=== PATIENT | male | born 1985 | race Caucasian/White ===

== ENCOUNTER 2018-05-05 06:31 | Emergency (ER) | payer OTHER, BC ==
[2018-05-05 06:41] VITALS: BP 132/88
[2018-05-05] MEDS ORDERED: PROPARACAINE 0.5% OPHTH DROPS 15 ML LEFTEYE STA (06:45)
[2018-05-05] MEDS ORDERED: ERYTHROMYCIN OPHTH OINT 1 GM TUBE LEFTEYE STA (07:19)
--- NOTE | 2018-05-05 07:21 | ED Physician Documentation ---
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 work at [employer] has removed contact did not sleep in contact etc pain and irritation and FB sensation Review of Systems Eyes: reports: Irritation PD PAST MEDICAL HISTORY - Past Medical History Past Medical History: No - Past Surgical History Past Surgical History: No - Present Medications Home Medications: Ambulatory Orders Medication Instructions Recorded Confirmed Erythromycin Base [Erythromycin] 1 applic OP Q4H #1 tub 05/05/18 - Allergies Allergies/Adverse Reactions: Allergies Allergy/AdvReac Type Severity Reaction Status Date / Time acetaminophen [From Tylenol] Allergy Unknown Verified 05/05/18 06:38 codeine [From Coditussin AC] Allergy Unknown Verified 05/05/18 06:38 guaifenesin Allergy Unknown Verified 05/05/18 06:38 [From Coditussin AC] - Social History Does the pt smoke?: No Smoking Status: Never smoker Does the pt drink ETOH?: Yes Does the pt have substance abuse?: No - Immunizations Immunizations are current?: Yes - POLST Patient has POLST: No PD ED PE NORMAL - Vitals Vital signs reviewed: Yes - HEENT HEENT: Other (L eye injected, PERRl, no proptosis, EOMI, moderate abrasion LLQ, no FB even with lid eversion, no ulcer, no deindrites) Results - Vitals Vitals: Vital Signs - 24 hr 05/05/18 06:33 Temperature 36.6 C Heart Rate 75 Respiratory 16 Rate Blood Pressure 132/88 H O2 Saturation 97 Oxygen O2 Source Room air PD MEDICAL DECISION MAKING - Sepsis Event Vital Signs: Vital Signs - 24 hr 05/05/18 06:33 Temperature 36.6 C Heart Rate 75 Respiratory 16 Rate Blood Pressure 132/88 H O2 Saturation 97 Oxygen O2 Source Room air Departure - Departure Disposition: 01 Home, Self Care Clinical Impression: Corneal abrasion Qualifiers: Encounter type: initial encounter Laterality: left Qualified Code(s): S05.02XA - Injury of conjunctiva and corneal abrasion without foreign body, left eye, initial encounter Condition: Good Instructions: ED Eye Injury Corneal Abrasion Prescriptions: Erythromycin Base [Erythromycin] 1 applic OP Q4H #1 tub Comments: Do no wear your contacts until better Motrin and cool compresses for pain Eye ointment every 4 hr while awake for 5 days Return to see me Tuesday if not improving Forms: Activity restrictions
== END 2018-05-05 07:26 | disposition home or self-care (01) ==
LOC: ED 06:31
DX: S05.02XA Injury of conjunctiva and corneal abrasion without foreign body, left eye, initial encounter (principal); W22.8XXA Striking against or struck by other objects, initial encounter; Y99.0 Civilian activity done for income or pay
CPT/HCPCS: 99283; J3490

== ENCOUNTER 2018-10-30 16:33 | Emergency (ER) | payer BC, OTHER ==
[2018-10-30] MEDS ORDERED: SODIUM CHLORIDE 0.9% 1,000 ML IV ONE (19:47)
[2018-10-30] MEDS ORDERED: METOCLOPRAMIDE 10 MG/2 ML VIAL IVP STA (19:47)
[2018-10-30] MEDS ORDERED: KETOROLAC 15 MG/ML VIAL IVP STA (19:47)
[2018-10-30 20:07] LABS: BASOPHILS # (AUTO) 0.1 10^3/uL (0.0-0.1); BASOPHILS % (AUTO) 0.7 %; EOSINOPHILS % (AUTO) 0.5 %; LYMPHOCYTES # (AUTO) 2.4 10^3/uL (1.5-3.5); LYMPHOCYTES % (AUTO) 28.1 %; MEAN CORPUSCULAR HEMOGLOBIN 29.1 pg (27.0-31.0); MEAN CORPUSCULAR HGB CONC 33.7 g/dL (32.0-36.0); MEAN CORPUSCULAR VOLUME 86.3 fL (80.0-94.0); MONOCYTES # (AUTO) 0.6 10^3/uL (0.0-1.0); NEUTROPHILS # (AUTO) 5.3 10^3/uL (1.5-6.6); NEUTROPHILS % (AUTO) 63.7 %; PLT - PLATELET COUNT 199 10^3/uL (130-450); RED BLOOD COUNT 5.14 10^6/uL (4.70-6.10); RED CELL DISTRIBUTION WIDTH 12.8 % (12.0-15.0); WHITE BLOOD COUNT 8.4 x10^3/uL (4.8-10.8)
[2018-10-30 20:28] LABS: ALBUMIN 4.8 g/dL (3.2-5.5); ALBUMIN/GLOBULIN RATIO 1.5 (1.0-2.2); BILIRUBIN,TOTAL 1.1 mg/dL (0.2-1.0); CALCIUM 9.2 mg/dL (8.5-10.3); CREATININE 0.7 mg/dL (0.6-1.2); TOTAL PROTEIN 7.9 g/dL (6.7-8.2)
--- NOTE | 2018-10-30 21:08 | CT Report ---
Reason: HERNANDEZ Procedure Date: 10/30/2018 Accession Number: [id number] / [id number] Procedure: CT - HEAD WO CPT Code: FULL RESULT: EXAM: CT HEAD EXAM DATE: 10/30/2018 08:40 PM. CLINICAL HISTORY: Persistent headache. COMPARISON: None. TECHNIQUE: Multiaxial CT images were obtained from the foramen magnum to the vertex. Reformats: Sagittal and coronal. IV contrast: None. In accordance with CT protocol optimization, one or more of the following dose reduction techniques were utilized for this exam: automated exposure control, adjustment of mA and/or KV based on patient size, or use of iterative reconstructive technique. FINDINGS: Parenchyma: No intraparenchymal hemorrhage. No evidence of mass, midline shift, or CT findings of infarction. Pedroza-white differentiation is distinct. Extraaxial Spaces: Normal for age. No subdural or epidural collections identified. Ventricles: Normal in size and position. Sinuses and Orbits: Mucosal thickening in the sphenoid sinus, otherwise the imaged paranasal sinuses, orbits, and mastoids show no significant abnormality. Bones: No evidence of fracture or calvarial defect. Other: None. IMPRESSION: Chronic sphenoid sinusitis noted, otherwise unremarkable head CT. RADIA
[2018-10-30] MEDS ORDERED: AMOX/CLAV 875 MG/125 MG TABLET PO STA (21:23)
--- NOTE | 2018-10-30 21:26 | ED Physician Documentation ---
History of Present Illness - Stated complaint Stated Complaint: NUMBNESS IN HEAD - Chief complaint Chief Complaint: General - Additonal information Additional information: 33-year-old male presents the emergency department with head pain, dizziness and general fatigue and increased thirst which started today. The patient has recently had a URI which has progressed and had significant sinus pressure and congestion. No reports of fever, neck stiffness or neurologic changes. Symptoms are described as moderate. No other associated symptoms. No triggering factors. No relieving factors Review of Systems Constitutional: denies: Fever, Chills Eyes: denies: Discharge Ears: denies: Ear pain Nose: reports: Congestion Throat: denies: Sore throat Cardiac: denies: Chest pain / pressure Respiratory: denies: Cough GI: denies: Abdominal Pain : denies: Dysuria Skin: denies: Rash Musculoskeletal: denies: Neck pain Neurologic: reports: Headache. denies: Generalized weakness, Focal weakness, Numbness, Confused, Altered mental status PD PAST MEDICAL HISTORY - Past Medical History Past Medical History: No Cardiovascular: None Respiratory: None Neuro: None Endocrine/Autoimmune: None GI: None : None HEENT: None Psych: None Musculoskeletal: None Derm: None - Past Surgical History Past Surgical History: No - Present Medications Home Medications: Ambulatory Orders Medication Instructions Recorded Confirmed Erythromycin Base [Erythromycin] 1 applic OP Q4H #1 tub 05/05/18 Amox/Clav 875/125 [Augmentin] 1 each PO Q12H #20 tablet 10/30/18 - Allergies Allergies/Adverse Reactions: Allergies Allergy/AdvReac Type Severity Reaction Status Date / Time acetaminophen [From Tylenol] Allergy Unknown Verified 10/30/18 16:47 codeine [From Coditussin AC] Allergy Unknown Verified 10/30/18 16:47 hydroxyzine Allergy Dizziness Verified 10/30/18 16:47 guaifenesin AdvReac Unknown Verified 10/30/18 16:47 [From Coditussin AC] - Social History Does the pt smoke?: No Smoking Status: Never smoker Does the pt drink ETOH?: Yes Does the pt have substance abuse?: No - Immunizations Immunizations are current?: Yes - POLST Patient has POLST: No PD ED PE NORMAL - General General: Alert and oriented X 3, No acute distress - HEENT HEENT: Atraumatic, PERRL, EOMI, Ears normal, Pharynx benign - Neck Neck: Supple, no meningeal sign - Cardiac Cardiac: RRR, Strong equal pulses - Respiratory Respiratory: No respiratory distress, Clear bilaterally - Abdomen Abdomen: Soft, Non tender - Derm Derm: Normal color - Extremities Extremities: No deformity - Neuro Neuro: Alert and oriented X 3, 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, No motor deficit, Normal speech - Psych Psych: Normal mood Results - Vitals Vitals: Vital Signs - 24 hr 10/30/18 10/30/18 10/30/18 16:40 19:25 20:18 Temperature 36.7 C Heart Rate 82 77 Respiratory 16 17 16 Rate Blood Pressure 134/92 H 140/98 H 132/95 H O2 Saturation 100 98 10/30/18 10/30/18 20:19 20:57 Temperature Heart Rate 65 69 Respiratory 16 Rate Blood Pressure 129/89 H O2 Saturation 100 100 Oxygen O2 Source Room air - Labs Labs: Laboratory Tests 10/30/18 10/30/18 19:57 19:57 WBC 8.4 RBC 5.14 Hgb 15.0 Hct 44.4 MCV 86.3 MCH 29.1 MCHC 33.7 RDW 12.8 Plt Count 199 MPV 9.0 Neut # (Auto) 5.3 Lymph # (Auto) 2.4 [place] # (Auto) 0.6 Eos # (Auto) 0.0 Baso # (Auto) 0.1 Absolute Nucleated RBC 0.01 Nucleated RBC % 0.1 Sodium 137 Potassium 3.4 L Chloride 100 L Carbon Dioxide 28 Anion Gap 9.0 BUN 20 Creatinine 0.7 Estimated GFR (MDRD) 132 Glucose 91 Calcium 9.2 Total Bilirubin 1.1 H AST 23 ALT 34 Alkaline Phosphatase 62 Total Protein 7.9 Albumin 4.8 Globulin 3.1 Albumin/Globulin Ratio 1.5 Lipase 30 - Rads (name of study) CT head Radiology: Final report received, See rad report (IMPRESSION: Chronic sphenoid sinusitis noted, otherwise unremarkable head CT) PD MEDICAL DECISION MAKING - ED course ED course: The patient's sinus symptoms have been ongoing for quite a long time and now has CT evidence of sinusitis, given the duration and radiographic findings he will be treated for a sinus infection. The patient will be treated with antibiotics for presumed bacterial etiology. Otherwise, on reevaluation the patient is resting comfortably and his symptoms are under control. Presently the patient appears appropriate for discharge with ongoing outpatient management. The patient will return to the emergency department immediately for any worsening or any concerns Departure - Departure Disposition: 01 Home, Self Care Clinical Impression: Dizziness Headache Qualifiers: Headache type: unspecified Headache chronicity pattern: acute headache Intractability: not intractable Qualified Code(s): R51 - Headache Sinusitis Qualifiers: Sinusitis location: other Chronicity: acute Recurrence: non-recurrent Qualified Code(s): J01.80 - Other acute sinusitis Condition: Good Instructions: ED Dizziness UKO, ED Cephalgia Unspecified, ED Sinusitis Abx Tx Follow-Up: N[facility] [Provider Group] Prescriptions: Amox/Clav 875/125 [Augmentin] 1 each PO Q12H #20 tablet Comments: Please return to the emergency department for worsening symptoms or any concerns
[2018-10-30 21:42] VITALS: BP 141/110
== END 2018-10-30 21:50 | disposition home or self-care (01) ==
LOC: ED 16:33
DX: J01.80 Other acute sinusitis (principal); J32.3 Chronic sphenoidal sinusitis; R42 Dizziness and giddiness
CPT/HCPCS: 36415; 70450; 80053; 83690; 85025; 96361; 96374; 99283; A9270; J2765

== ENCOUNTER 2019-10-26 16:30 | Emergency (ER) | payer BC ==
[2019-10-26 17:32] LABS: BASOPHILS % (AUTO) 0.4 %; EOSINOPHILS % (AUTO) 0.4 %; HGB - HEMOGLOBIN 15.7 g/dL (14.0-18.0); LYMPHOCYTES # (AUTO) 1.6 10^3/uL (1.5-3.5); LYMPHOCYTES % (AUTO) 22.6 %; MEAN CORPUSCULAR HGB CONC 35.1 g/dL (32.0-36.0); MEAN CORPUSCULAR VOLUME 85.5 fL (80.0-94.0); MEAN PLATELET VOLUME 11.1 fL (7.4-11.4); MONOCYTES # (AUTO) 0.5 10^3/uL (0.0-1.0); MONOCYTES % (AUTO) 6.5 %; NEUTROPHILS # (AUTO) 4.9 10^3/uL (1.5-6.6); NEUTROPHILS % (AUTO) 69.5 %; PLT - PLATELET COUNT 236 10^3/uL (130-450); RED BLOOD COUNT 5.23 10^6/uL (4.70-6.10); RED CELL DISTRIBUTION WIDTH 11.3 % (12.0-15.0); WHITE BLOOD COUNT 7.1 x10^3/uL (4.8-10.8)
[2019-10-26] MEDS ORDERED: KETOROLAC 60 MG/2 ML VIAL IM STA (17:36)
[2019-10-26 17:39] LABS: BILIRUBIN,URINE NEGATIVE (NEGATIVE); GLUCOSE, URINE (UA) NEGATIVE (NEGATIVE); KETONES,URINE (UA) NEGATIVE (NEGATIVE); LEUKOCYTE ESTERASE, URINE NEGATIVE (NEGATIVE); NITRITE,URINE NEGATIVE (NEGATIVE); OCCULT BLOOD,URINE NEGATIVE (NEGATIVE); PH,URINE 7.5 PH (5.0-7.5); PROTEIN,URINE NEGATIVE (NEGATIVE); UROBILINOGEN,URINE 0.2 (NORMAL) E.U./dL (NORMAL)
[2019-10-26 17:40] LABS: ALBUMIN 5.2 g/dL (3.2-5.5); ALBUMIN/GLOBULIN RATIO 1.9 (1.0-2.2); BILIRUBIN,TOTAL 0.5 mg/dL (0.2-1.0); CALCIUM 9.1 mg/dL (8.5-10.3); CREATININE 0.7 mg/dL (0.6-1.2)
--- NOTE | 2019-10-26 17:40 | ED Physician Documentation ---
History of Present Illness - Stated complaint Stated Complaint: RT BACK PX/MALE - Chief complaint Chief Complaint: General - History obtained from History obtained from: Patient - History of Present Illness Timing: Today Pain level max: 9 Pain level now: 5 - Additonal information Additional information: R flank pain, sudden onset. [place] like he had a weak stream as well today. This is better now. Nothing makes it better or worse. states dark urine last night. no vomiting. no nausea. Review of Systems Ten Systems: 10 systems reviewed and negative Constitutional: denies: Fever, Chills Throat: denies: Sore throat Cardiac: denies: Chest pain / pressure Respiratory: denies: Cough GI: denies: Vomiting, Diarrhea Skin: denies: Rash Musculoskeletal: denies: Neck pain, Back pain Neurologic: denies: Headache PD PAST MEDICAL HISTORY - Past Medical History Cardiovascular: None Respiratory: None Neuro: None Endocrine/Autoimmune: None GI: None : None HEENT: None Psych: None Musculoskeletal: None Derm: None - Past Surgical History Past Surgical History: No - Present Medications Home Medications: Ambulatory Orders Medication Instructions Recorded Confirmed Erythromycin Base [Erythromycin] 1 applic OP Q4H #1 tub 05/05/18 Amox/Clav 875/125 [Augmentin] 1 each PO Q12H #20 tablet 10/30/18 - Allergies Allergies/Adverse Reactions: Allergies Allergy/AdvReac Type Severity Reaction Status Date / Time acetaminophen [From Tylenol] Allergy Unknown Verified 10/26/19 16:37 codeine [From Coditussin AC] Allergy Unknown Verified 10/26/19 16:37 hydroxyzine Allergy Dizziness Verified 10/26/19 16:37 guaifenesin AdvReac Unknown Verified 10/26/19 16:37 [From Coditussin AC] - Social History Does the pt smoke?: No Smoking Status: Never smoker Does the pt drink ETOH?: Yes Does the pt have substance abuse?: No - Immunizations Immunizations are current?: Yes - POLST Patient has POLST: No PD ED PE NORMAL - Vitals Vital signs reviewed: Yes - General General: Alert and oriented X 3, No acute distress - HEENT HEENT: Moist mucous membranes - Neck Neck: Supple, no meningeal sign - Cardiac Cardiac: RRR, Strong equal pulses - Respiratory Respiratory: No respiratory distress, Clear bilaterally - Abdomen Abdomen: Normal bowel sounds, Soft, Non tender, Non distended - Back Back: No CVA TTP, No spinal TTP - Derm Derm: Warm and dry, No rash - Neuro Neuro: Alert and oriented X 3 - Psych Psych: Normal mood, Normal affect Results - Vitals Vitals: Vital Signs - 24 hr 10/26/19 10/26/19 16:34 18:39 Temperature 36.3 C L Heart Rate 86 76 Respiratory 17 18 Rate Blood Pressure 148/98 H 144/88 H O2 Saturation 98 100 Oxygen O2 Source Room air - Labs Labs: Laboratory Tests 10/26/19 10/26/19 10/26/19 17:18 17:18 17:20 WBC 7.1 RBC 5.23 Hgb 15.7 Hct 44.7 MCV 85.5 MCH 30.0 MCHC 35.1 RDW 11.3 L Plt Count 236 MPV 11.1 Neut # (Auto) 4.9 Lymph # (Auto) 1.6 [place] # (Auto) 0.5 Eos # (Auto) 0.0 Baso # (Auto) 0.0 Absolute Nucleated RBC 0.00 Nucleated RBC % 0.0 Sodium 136 Potassium 3.3 L Chloride 99 L Carbon Dioxide 28 Anion Gap 9.0 BUN 13 Creatinine 0.7 Estimated GFR (MDRD) 131 Glucose 112 H Calcium 9.1 Total Bilirubin 0.5 AST 21 ALT 33 Alkaline Phosphatase 59 Total Protein 8.0 Albumin 5.2 Globulin 2.8 Albumin/Globulin Ratio 1.9 Lipase 29 Urine Color YELLOW Urine Clarity CLEAR Urine pH 7.5 Ur Specific [place] 1.010 Urine Protein NEGATIVE Urine Glucose (UA) NEGATIVE Urine Ketones NEGATIVE Urine Occult Blood NEGATIVE Urine Nitrite NEGATIVE Urine Bilirubin NEGATIVE Urine Urobilinogen 0.2 (NORMAL) Ur Leukocyte Esterase NEGATIVE Ur Microscopic Review NOT INDICATED Urine Culture Comments NOT INDICATED - Rads (name of study) CT abd/pelvis w/o Radiology: Prelim report reviewed, EMP read contemporaneously PD MEDICAL DECISION MAKING - ED course Complexity details: reviewed results, re-evaluated patient, considered differential, d/w patient ED course: Patient with symptoms consistent with a recently passed kidney stone. No acute findings on CT scan of the abdomen or pelvis. Normal appendix. Pain resolved with Toradol. No evidence of UTI. No change in sexual partners. No evidence of STD. Patient counseled regarding signs and symptoms for which I believe and urgent re-evaluation would be necessary. Patient with good understanding of and agreement to plan and is comfortable going home at this time This document was made in part using voice recognition software. While efforts are made to proofread this document, sound alike and grammatical errors may occur. Departure - Departure Disposition: 01 Home, Self Care Clinical Impression: Flank pain Condition: Good Instructions: ED Stone Renal Passed Follow-Up: your,doctor as needed. [Other] Comments: It appears that you likely passed a kidney stone today. Follow-up with your doctor for further care as needed. Return if you worsen. Discharge Date/Time: 10/26/19 18:39
[2019-10-26 17:42] LABS: CLARITY,URINE CLEAR (CLEAR)
--- NOTE | 2019-10-26 18:16 | CT Report ---
Reason: R flank pain Procedure Date: 10/26/2019 Accession Number: [id number] / [id number] Procedure: CT - Abdomen/Pelvis WO CPT Code: Final Report FULL RESULT: EXAM: CT ABDOMEN AND PELVIS (CT KUB) EXAM DATE: 10/26/2019 05:45 PM. CLINICAL HISTORY: R flank pain. COMPARISONS: None. TECHNIQUE: Routine axial helical CT imaging was performed through the abdomen and pelvis without IV contrast. Reconstructions: Coronal and sagittal. In accordance with CT protocol optimization, one or more of the following dose reduction techniques were utilized for this exam: automated exposure control, adjustment of mA and/or KV based on patient size, or use of iterative reconstructive technique. FINDINGS: Lung Bases: Unremarkable. Right Kidney/Ureter: No stones, hydronephrosis, or hydroureter. No perinephric fat stranding. Left Kidney/Ureter: No stones, hydronephrosis, or hydroureter. No perinephric fat stranding. Other Solid Organs: Noncontrast images of the solid organs are grossly unremarkable. Gallbladder/Bile Ducts: Unremarkable. Peritoneal Cavity: No free fluid, free air or leigh adenopathy. Bowel is grossly unremarkable. Normal retrocecal appendix. Pelvic Organs: No bladder stones or wall thickening. Noncontrast images of the visualized pelvic organs are unremarkable. Vasculature: Unremarkable. Other: None. IMPRESSION: 1. No urinary tract stones or obstruction. 2. Normal appendix. RADIA
[2019-10-26 18:39] VITALS: BP 144/88
== END 2019-10-26 18:39 | disposition home or self-care (01) ==
LOC: ED 16:30
DX: R10.9 Unspecified abdominal pain (principal)
CPT/HCPCS: 36415; 74176; 80053; 81001; 81003; 83690; 85025; 87086; 96372; 99284

== ENCOUNTER 2019-10-27 21:00 | Emergency (ER) | payer BC ==
--- NOTE | 2019-10-27 21:21 | ED Physician Documentation ---
History of Present Illness - Stated complaint Stated Complaint: N/D, FEVER - ED F/U - Chief complaint Chief Complaint: Abd Pain - History obtained from History obtained from: Patient (the patient is a 34 y/o m who c/o diarrhea, chills, right leg pain. was seen here yesterday had a neg ct ap, neg cbc/cmp and ua. was normal. patient c/o of right leg pain after he received IM toradol shot yesterday in right glute.Patient also reports Shaking,. He denies any travel outside the country in the last 14 days he denies any fevers denies headache neck pain or rashes denies any bowel or bladder dysfunction denies any urinary retention denies any saddle anesthesia denies any difficulty ambulating.) Review of Systems Constitutional: reports: Chills, Myalgias, Sweats, Reviewed and negative Eyes: reports: Reviewed and negative Ears: reports: Reviewed and negative Nose: reports: Reviewed and negative Throat: reports: Reviewed and negative Cardiac: reports: Reviewed and negative Respiratory: reports: Reviewed and negative GI: reports: Diarrhea : reports: Reviewed and negative Skin: reports: Reviewed and negative Musculoskeletal: reports: Other (right leg pain) Neurologic: reports: Reviewed and negative Psychiatric: reports: Reviewed and negative Endocrine: reports: Reviewed and negative Immunocompromised: reports: Reviewed and negative PD PAST MEDICAL HISTORY - Past Medical History Cardiovascular: None Respiratory: None Neuro: None Endocrine/Autoimmune: None GI: None : None HEENT: None Psych: None Musculoskeletal: None Derm: None - Past Surgical History Past Surgical History: No - Present Medications Home Medications: Ambulatory Orders Medication Instructions Recorded Confirmed Diazepam [Valium] 10 mg PO BID PRN #7 tablet 10/27/19 - Allergies Allergies/Adverse Reactions: Allergies Allergy/AdvReac Type Severity Reaction Status Date / Time acetaminophen [From Tylenol] Allergy Unknown Verified 10/27/19 21:05 codeine [From Coditussin AC] Allergy Unknown Verified 10/27/19 21:05 hydroxyzine Allergy Dizziness Verified 10/27/19 21:05 - Social History Does the pt smoke?: No Smoking Status: Never smoker Does the pt drink ETOH?: Yes Does the pt have substance abuse?: No - Immunizations Immunizations are current?: Yes - POLST Patient has POLST: No PD ED PE NORMAL - Vitals Vital signs reviewed: Yes - General General: Alert and oriented X 3, No acute distress, Well developed/nourished - HEENT HEENT: Atraumatic, PERRL, Pharynx benign, Dentition benign - Neck Neck: Supple, no meningeal sign, No JVD - Cardiac Cardiac: RRR, No murmur, Strong equal pulses - Respiratory Respiratory: No respiratory distress, Clear bilaterally - Abdomen Abdomen: Normal bowel sounds, Soft, Non tender, Non distended - Back Back: No CVA TTP, No spinal TTP - Derm Derm: Normal color, Warm and dry, No rash - Extremities Extremities: No deformity, No tenderness to palpate, Normal ROM s pain, No edema, No calf tenderness / cord, Other (positive straight leg test on the right) - Neuro Neuro: Alert and oriented X 3 - Psych Psych: Normal mood, Normal affect Results - Vitals Vitals: Vital Signs - 24 hr 10/27/19 10/27/19 10/27/19 21:06 22:01 22:20 Temperature 36.5 C Heart Rate 89 82 84 Respiratory 14 16 17 Rate Blood Pressure 132/86 H 161/91 H 162/91 H O2 Saturation 100 98 100 10/27/19 22:49 Temperature Heart Rate 85 Respiratory 16 Rate Blood Pressure 148/94 H O2 Saturation 96 Oxygen O2 Source Room air - Labs Labs: Laboratory Tests 10/27/19 10/27/19 10/27/19 21:45 21:52 21:52 WBC 8.2 RBC 4.84 Hgb 14.6 Hct 41.5 L MCV 85.7 MCH 30.2 MCHC 35.2 RDW 11.4 L Plt Count 217 MPV 11.3 Neut # (Auto) 5.5 Lymph # (Auto) 1.8 [place] # (Auto) 0.9 Eos # (Auto) 0.1 Baso # (Auto) 0.1 Absolute Nucleated RBC 0.00 Nucleated RBC % 0.0 Sodium 138 Potassium 3.4 L Chloride 105 Carbon Dioxide 26 Anion Gap 7.0 BUN 17 Creatinine 0.8 Estimated GFR (MDRD) 112 Glucose 101 H Lactic Acid Calcium 9.1 Total Bilirubin 0.6 AST 21 ALT 34 Alkaline Phosphatase 56 Total Creatine Kinase 114 Total Protein 7.2 Albumin 4.7 Globulin 2.5 Albumin/Globulin Ratio 1.9 Lipase 34 Urine Color YELLOW Urine Clarity CLEAR Urine pH 6.0 Ur Specific [place] 1.015 Urine Protein NEGATIVE Urine Glucose (UA) NEGATIVE Urine Ketones NEGATIVE Urine Occult Blood NEGATIVE Urine Nitrite NEGATIVE Urine Bilirubin NEGATIVE Urine Urobilinogen 0.2 (NORMAL) Ur Leukocyte Esterase NEGATIVE Ur Microscopic Review NOT INDICATED Urine Culture Comments NOT INDICATED 10/27/19 21:52 WBC RBC Hgb Hct MCV MCH MCHC RDW Plt Count MPV Neut # (Auto) Lymph # (Auto) [place] # (Auto) Eos # (Auto) Baso # (Auto) Absolute Nucleated RBC Nucleated RBC % Sodium Potassium Chloride Carbon Dioxide Anion Gap BUN Creatinine Estimated GFR (MDRD) Glucose Lactic Acid 0.8 Calcium Total Bilirubin AST ALT Alkaline Phosphatase Total Creatine Kinase Total Protein Albumin Globulin Albumin/Globulin Ratio Lipase Urine Color Urine Clarity Urine pH Ur Specific [place] Urine Protein Urine Glucose (UA) Urine Ketones Urine Occult Blood Urine Nitrite Urine Bilirubin Urine Urobilinogen Ur Leukocyte Esterase Ur Microscopic Review Urine Culture Comments PD MEDICAL DECISION MAKING - ED course Complexity details: reviewed old records, reviewed results, re-evaluated patient (23:37 Patient revaluated, asymptomatic now, requesting to be dcd home. will establish care with a pcp.), considered differential (sciatica nerve irritation post toradol shot. gastroenteritis, dehydration, anxiety), d/w patient Departure - Departure Disposition: Home, Self Care Clinical Impression: Right leg pain, Gastroenteritis Sciatic nerve injury Qualifiers: Encounter type: initial encounter Laterality: right Qualified Code(s): S74.01XA - Injury of sciatic nerve at hip and thigh level, right leg, initial encounter Condition: Stable Instructions: ED Sciatica Follow-Up: YOUR, DOCTOR [Other] - Within 3 Days Prescriptions: Diazepam [Valium] 10 mg PO BID PRN #7 tablet PRN Reason: Spasms
[2019-10-27] MEDS ORDERED: ONDANSETRON 4 MG/2 ML VIAL IVP STA (21:36)
[2019-10-27] MEDS ORDERED: SODIUM CHLORIDE 0.9% 1,000 ML IV ONE (21:36)
[2019-10-27] MEDS ORDERED: fentaNYL 100 MCG/2 ML VIAL IVP STA (21:36)
[2019-10-27 22:09] LABS: BASOPHILS # (AUTO) 0.1 10^3/uL (0.0-0.1); BASOPHILS % (AUTO) 0.6 %; EOSINOPHILS # (AUTO) 0.1 10^3/uL (0.0-0.7); EOSINOPHILS % (AUTO) 0.7 %; HGB - HEMOGLOBIN 14.6 g/dL (14.0-18.0); LYMPHOCYTES # (AUTO) 1.8 10^3/uL (1.5-3.5); LYMPHOCYTES % (AUTO) 21.5 %; MEAN CORPUSCULAR HEMOGLOBIN 30.2 pg (27.0-31.0); MEAN CORPUSCULAR HGB CONC 35.2 g/dL (32.0-36.0); MEAN CORPUSCULAR VOLUME 85.7 fL (80.0-94.0); MEAN PLATELET VOLUME 11.3 fL (7.4-11.4); MONOCYTES # (AUTO) 0.9 10^3/uL (0.0-1.0); MONOCYTES % (AUTO) 10.5 %; NEUTROPHILS # (AUTO) 5.5 10^3/uL (1.5-6.6); NEUTROPHILS % (AUTO) 66.3 %; PLT - PLATELET COUNT 217 10^3/uL (130-450); RED BLOOD COUNT 4.84 10^6/uL (4.70-6.10); RED CELL DISTRIBUTION WIDTH 11.4 % (12.0-15.0); WHITE BLOOD COUNT 8.2 x10^3/uL (4.8-10.8)
[2019-10-27 22:11] LABS: BILIRUBIN,URINE NEGATIVE (NEGATIVE); GLUCOSE, URINE (UA) NEGATIVE (NEGATIVE); KETONES,URINE (UA) NEGATIVE (NEGATIVE); LEUKOCYTE ESTERASE, URINE NEGATIVE (NEGATIVE); NITRITE,URINE NEGATIVE (NEGATIVE); OCCULT BLOOD,URINE NEGATIVE (NEGATIVE); PROTEIN,URINE NEGATIVE (NEGATIVE); UROBILINOGEN,URINE 0.2 (NORMAL) E.U./dL (NORMAL)
[2019-10-27 22:14] LABS: CLARITY,URINE CLEAR (CLEAR)
[2019-10-27 22:20] LABS: ALBUMIN 4.7 g/dL (3.2-5.5); ALBUMIN/GLOBULIN RATIO 1.9 (1.0-2.2); BILIRUBIN,TOTAL 0.6 mg/dL (0.2-1.0); CALCIUM 9.1 mg/dL (8.5-10.3); CREATININE 0.8 mg/dL (0.6-1.2); TOTAL PROTEIN 7.2 g/dL (6.7-8.2)
[2019-10-27] MEDS ORDERED: methylPREDNISolone SUCCINATE 125 MG/2 ML VIAL IVP STA (22:31)
[2019-10-27] MEDS ORDERED: diazePAM INJ 5 MG/ML SYRINGE IVP STA (22:31)
[2019-10-27 23:44] VITALS: BP 146/89
== END 2019-10-27 23:44 | disposition home or self-care (01) ==
LOC: ED 21:00
DX: K52.9 Noninfective gastroenteritis and colitis, unspecified (principal); S74.01XA Injury of sciatic nerve at hip and thigh level, right leg, initial encounter; X58.XXXA Exposure to other specified factors, initial encounter; Y93.89 Activity, other specified; Y92.538 Other ambulatory health services establishments as the place of occurrence of the external cause
CPT/HCPCS: 36415; 80053; 81001; 81003; 82550; 83605; 83690; 85025; 87086; 99284; 99285

== ENCOUNTER 2021-01-20 17:35 | Emergency (ER) | payer BC ==
--- NOTE | 2021-01-20 19:02 | CT Report ---
PROCEDURE: HEAD WO INDICATIONS: fall, head injury TECHNIQUE: Noncontrast 4.5 mm thick angled axial sections acquired from the foramen magnum to the vertex. For r adiation dose reduction, the following was used: automated exposure control, adjustment of mA and/or kV according to patient size. COMPARISON: None. FINDINGS: Image quality: Excellent. CSF spaces: Basal cisterns are patent. No extra-axial fluid collections. Ventricles are normal in size and shape. Brain: No midline shift. No intracranial masses or hemorrhage. Pedro[place]-white matter interface is norm al. Skull and face: Calvarium and visualized facial bones are intact, without suspicious lesions. Sinuses: Visualized sinuses and mastoids are clear. IMPRESSION: No evidence acute stroke, hemorrhage, or mass. No evidence significant intracranial sequ elae of acute trauma. Reviewed by: Trace Britton MD on 01/20/2021 7:00 PM PDT Approved by: Trace Britton MD on 01/20/2021 7:00 PM PDT Station ID: [id number]
--- NOTE | 2021-01-20 19:03 | CT Report ---
PROCEDURE: CERVICAL SPINE WO INDICATIONS: fall, neck pain TECHNIQUE: Noncontrast 3 mm thick sections acquired from the skull base to the T4 level. Sagittal and coronal r eformats were then constructed. For radiation dose reduction, the following was used: automated exp osure control, adjustment of mA and/or kV according to patient size. COMPARISON: None. FINDINGS: Image quality: Excellent. Bones: No fractures or dislocations. Visualized superior ribs are intact. Soft tissues: Prevertebral soft tissues are normal in thickness. No paravertebral hematomas. No ap ical pneumothoraces. IMPRESSION: No evidence of acute cervical fracture or dislocation. Reviewed by: Trace Britton MD on 01/20/2021 7:02 PM PDT Approved by: Trace Britton MD on 01/20/2021 7:02 PM PDT Station ID: [id number]
--- NOTE | 2021-01-20 19:04 | XRAY Report ---
PROCEDURE: Shoulder 3 View RT INDICATIONS: fall, shoulder pain TECHNIQUE: 3 views of the shoulder were acquired. COMPARISON: None. FINDINGS: Bones: No fractures or dislocations. No suspicious bony lesions. Visualized ribs appear intact. Soft tissues: No suspicious soft tissue calcifications. IMPRESSION: No evidence of acute bony abnormality of the right shoulder. Reviewed by: Trace Britton MD on 01/20/2021 7:02 PM PDT Approved by: Trace Britton MD on 01/20/2021 7:02 PM PDT Station ID: [id number]
[2021-01-20] MEDS ORDERED: oxyCODONE 5 MG TABLET PO STA (19:41)
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
[2021-01-20 19:48] VITALS: BP 117/80
== END 2021-01-20 19:56 | disposition home or self-care (01) ==
LOC: ED 17:35
DX: S09.90XA Unspecified injury of head, initial encounter (principal); S29.011A Strain of muscle and tendon of front wall of thorax, initial encounter; S16.1XXA Strain of muscle, fascia and tendon at neck level, initial encounter; V18.0XXA Pedal cycle driver injured in noncollision transport accident in nontraffic accident, initial encounter; Y93.55 Activity, bike riding; Z87.891 Personal history of nicotine dependence
CPT/HCPCS: 70450; 72125; 73030; 99284; A9270

== ENCOUNTER 2023-03-14 22:03 | Emergency (ER) | payer BC ==
--- NOTE | 2023-03-14 23:39 | ED Physician Documentation ---
PD HPI BACK PAIN - Stated complaint Stated Complaint: BACK PX - Chief complaint Chief Complaint: Abd Pain - History obtained from History obtained from: Patient - Additional information Additional information: HPI from patient. Patient c/o left flank pain, sudden onset 9 PM tonight while at home at rest. Pain waxes and wanes without exacerbating or ameliorating factors. Pain is associated with nausea in proportion to severity but no vomiting. Patient says he had similar symptoms a few years ago for which he was evaluated in this ED; per patient, no diagnostic test results but renal colic was suspected etiology. Patient denies gross hematuria, dysuria, urinary frequency. Review of Systems Constitutional: denies: Fever Cardiac: reports: Reviewed and negative Respiratory: reports: Reviewed and negative GI: reports: Nausea. denies: Abdominal Pain, Vomiting Musculoskeletal: denies: Back pain (left flank pain but not back pain per se) PD PAST MEDICAL HISTORY - Past Medical History Cardiovascular: None Respiratory: None Neuro: None Endocrine/Autoimmune: None GI: None : None HEENT: None Psych: None Musculoskeletal: None Derm: None - Past Surgical History Past Surgical History: No - Present Medications Home Medications: Ambulatory Orders Medication Instructions Recorded Confirmed Ibuprofen [Motrin] 800 mg PO Q8H PRN #30 tablet 01/20/21 Oxycodone HCl/Acetaminophen 1 - 2 each PO Q6H PRN #12 tablet 01/20/21 [Percocet 5-325 mg Tablet] Ondansetron Odt [Zofran] 4 mg TL Q6H PRN #14 tablet 03/15/23 Oxycodone HCl/Acetaminophen 1 each PO Q4HR PRN #20 tablet 03/15/23 [Oxycodone-Acetaminophn 7.5-325] Tamsulosin [Flomax] 0.4 mg PO DAILY #10 cap 03/15/23 - Allergies Allergies/Adverse Reactions: Allergies Allergy/AdvReac Type Severity Reaction Status Date / Time acetaminophen [From Tylenol] Allergy Unknown Verified 03/14/23 22:09 codeine [From Coditussin AC] Allergy Unknown Verified 03/14/23 22:09 hydroxyzine Allergy Dizziness Verified 03/14/23 22:09 - Social History Does the pt smoke?: No Smoking Status: Former smoker Does the pt drink ETOH?: Yes Does the pt have substance abuse?: No - Immunizations Immunizations are current?: Yes - POLST Patient has POLST: No PD ED PE NORMAL - Vitals Vital signs reviewed: Yes - General General: Alert and oriented X 3, No acute distress, Well developed/nourished - Respiratory Respiratory: No respiratory distress, Clear bilaterally - Abdomen Abdomen: Soft, Non tender, Non distended - Back Back: No CVA TTP Results - Vitals Vitals: Oxygen O2 Source Room air - Labs Labs: Laboratory Tests 03/15/23 00:15 Urine Color YELLOW Urine Clarity CLEAR Urine pH 5.5 Ur Specific Ashley >=1.030 H Urine Protein TRACE Urine Glucose (UA) NEGATIVE Urine Ketones NEGATIVE Urine Occult Blood LARGE H Urine Nitrite NEGATIVE Urine Bilirubin NEGATIVE Urine Urobilinogen 1 (NORMAL) Ur Leukocyte Esterase NEGATIVE Urine RBC TNTC H Urine WBC 0-3 Ur Squamous Epith Cells RARE Squamous Urine Crystals 3-5 Calcium Oxalate Urine Bacteria None Seen Urine Mucus Moderate Strands Ur Microscopic Review INDICATED Urine Culture Comments NOT INDICATED - Rads (name of study) CT A/P Relevant Findings:: Prelim report reviewed, See rad report PD Medical Decision Making - ED course Complexity details: reviewed results, re-evaluated patient, considered differential, d/w patient ED course: HPI is s/o of left-sided renal colic and CT A/P demonstrates left ureteral calculus. UA reflects macro/microscopic hematuria without evidence of UTI. His symptoms had improved significantly prior to my H+P and he remained in NAD during ED stay, and patient did not require medication for symptoms during ED stay; he is given 0.4 mg PO tamsulosin prior to d/c for ureterolithiasis. Results d/w patient, return precautions reviewed. He is provided take-home packs of zofran and percocet and rx for these medications, as well as tamsulosin, are provided. I am prescribing a short course of short-acting opioid pain medication for this patient. 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 I have discussed that the opioids are for short term therapy only, and will not be refilled from the ED. Departure - Departure Disposition: 01 Home, Self Care Clinical Impression: Renal colic on left side Condition: Good Instructions: ED Stone Renal W Colic Follow-Up: Gianni Trujillo MD [Provider Admit Priv/Credential] - Prescriptions: Oxycodone HCl/Acetaminophen [Oxycodone-Acetaminophn 7.5-325] 1 each PO Q4HR PRN #20 tablet PRN Reason: Pain >8 Tamsulosin [Flomax] 0.4 mg PO DAILY #10 cap Ondansetron Odt [Zofran] 4 mg TL Q6H PRN #14 tablet PRN Reason: Nausea / Vomiting Comments: The CT scan shows a kidney stone on the left side that is stuck in your ureter (the conduit from the kidney to the bladder). This is the cause of your pain. The size of the stone favor spontaneous passage (as opposed to needing a procedure to have a kidney stone removed). I am providing you with prescriptions for Percocet (opiate/narcotic pain medication), ondansetron (antinausea medication), and tamsulosin (medication that increases the likelihood that you will pass the stone without needed procedure as well as decreases the time to stone passage). Forms: PCP List Discharge Date/Time: 03/15/23 03:05
[2023-03-15 00:45] LABS: BILIRUBIN,URINE NEGATIVE (NEGATIVE); GLUCOSE, URINE (UA) NEGATIVE (NEGATIVE); KETONES,URINE (UA) NEGATIVE (NEGATIVE); LEUKOCYTE ESTERASE, URINE NEGATIVE (NEGATIVE); NITRITE,URINE NEGATIVE (NEGATIVE); OCCULT BLOOD,URINE LARGE (NEGATIVE); PH,URINE 5.5 PH (5.0-7.5); PROTEIN,URINE TRACE mg/dL (NEGATIVE); UROBILINOGEN,URINE 1 (NORMAL) E.U./dL (NORMAL)
[2023-03-15 00:49] LABS: CLARITY,URINE CLEAR (CLEAR)
[2023-03-15 01:02] LABS: BACTERIA,URINE None Seen /HPF (None Seen); CRYSTALS,URINE 3-5 Calcium Oxalate /LPF; MUCUS,URINE Moderate Strands; RBC,URINE TNTC /HPF (0-5); SQUAMOUS EPITHELIAL CELL,UR RARE Squamous (<= Few); WBC,URINE 0-3 /HPF (0-3)
--- NOTE | 2023-03-15 02:02 | CT Report ---
PROCEDURE: ABDOMEN/PELVIS WO INDICATIONS: left flank pain TECHNIQUE: A CT scan of the abdomen and pelvis was performed without the use of intravenous contrast. Images we re recorded and evaluated at appropriate window settings. Reformats: coronal and sagittal. For radiat ion dose reduction, the following was used: automated exposure control, adjustment of mA and/or kV ac cording to patient size. COMPARISON: None. FINDINGS: Image quality: Excellent. Lung bases: There is mild dependant atelectasis. Heart: Heart is normal in size. URINARY: Right Kidney and Ureter: No stones or hydronephrosis. No hydroureter. Left Kidney and Ureter: There is an obstructing stone within the mid left ureter measuring 0.3 cm wi th mild left hydronephrosis. There is associated minimal perinephric and periureteral fat stranding. Bladder: Normal wall thickness. No stones. ABDOMEN: Liver: Noncontrast evaluation of the liver demonstrates no discrete mass. Gallbladder: Within normal limits without calcified gallstones. Biliary ducts: No biliary ductal dilatation. Pancreas: Unremarkable. Spleen: Normal in size. Adrenal Glands: No adrenal nodules. Stomach and Bowel: Stomach, small bowel loops, and colon are normal in caliber and wall thickness. T he appendix demonstrates no acute appendicitis. There is a punctate appendicolith at the base of the appendix. Peritoneum: No abnormal intraperitoneal fluid. No free air. Ventral Wall: No hernia. Abdominal Nodes: No retroperitoneal or mesenteric adenopathy by size criteria. Vessels: Aorta and inferior vena cava are normal in size. PELVIS: Pelvic Organs: Unremarkable. Pelvic Nodes: No enlarged lymph nodes. Miscellaneous: No inguinal hernias identified. Bones: Visualized osseous structures demonstrate no suspicious focal lesions. IMPRESSION: 1. Obstructing mid left ureteral stone with mild left hydronephrosis. Reviewed by: Romeo Grace MD on 03/15/2023 2:01 AM PDT Approved by: Romeo Grace MD on 03/15/2023 2:01 AM PDT Station ID: [id number]
[2023-03-15 02:06] VITALS: BP 144/88
[2023-03-15] MEDS ORDERED: TAMSULOSIN 0.4 MG CAPSULE PO STA (02:48)
[2023-03-15] MEDS ORDERED: ONDANSETRON ODT 4 MG Prepack 2 TL PRN (02:48)
[2023-03-15] MEDS ORDERED: oxyCODONE/ACET 5/325 Prepack 4 PO STA (02:48)
== END 2023-03-15 03:05 | disposition home or self-care (01) ==
LOC: ED 22:03
DX: N23 Unspecified renal colic (principal); Z87.891 Personal history of nicotine dependence
CPT/HCPCS: 74176; 81001; 99284; A9270; 81003; 87086

== ENCOUNTER 2023-03-17 09:58 | Emergency (ER) | payer BC ==
--- NOTE | 2023-03-17 10:15 | ED Physician Documentation ---
PD HPI ABD PAIN - Stated complaint Stated Complaint: MALE /ABD PX - Chief complaint Chief Complaint: Abd Pain - History obtained from History obtained from: Patient - History of Present Illness Timing - onset: How many days ago (4) Timing - duration: Days (4) Timing - details: Abrupt onset, Still present, Waxing and waning (pain had been doing better with only mild pain until today when increased signficantly again, as bad or even worse than initial day of this.) Quality: Cramping, Aching Location: LLQ Radiation: Left flank Improved by: No: Eating, Laying still Worsened by: No: Eating, Moving, Palpation Associated symptoms: Nausea, Vomiting. No: Fever, Diarrhea, Constipation, Dysuria, Chest pain Similar symptoms before: Diagnosis (seen 4 days ago in ER at onset of the pain and Dx with 3mm stone in proximal third ureter, mild hydronephrosis.) Recently seen: Emergency Dept (he states was doing okay with mild pain the few days after and markedly worsened today.) Review of Systems Constitutional: denies: Fever, Chills GI: reports: Abdominal Pain, Nausea, Vomiting, Diarrhea. denies: Constipation : denies: Dysuria, Frequency Skin: denies: Rash, Lesions PD PAST MEDICAL HISTORY - Past Medical History Cardiovascular: None Respiratory: None Neuro: None Endocrine/Autoimmune: None GI: None : None HEENT: None Psych: None Musculoskeletal: None Derm: None - Past Surgical History Past Surgical History: No - Present Medications Home Medications: Ambulatory Orders Medication Instructions Recorded Confirmed Ibuprofen [Motrin] 800 mg PO Q8H PRN #30 tablet 01/20/21 Oxycodone HCl/Acetaminophen 1 - 2 each PO Q6H PRN #12 tablet 01/20/21 [Percocet 5-325 mg Tablet] Ondansetron Odt [Zofran] 4 mg TL Q6H PRN #14 tablet 03/15/23 Oxycodone HCl/Acetaminophen 1 each PO Q4HR PRN #20 tablet 03/15/23 [Oxycodone-Acetaminophn 7.5-325] Tamsulosin [Flomax] 0.4 mg PO DAILY #10 cap 03/15/23 - Allergies Allergies/Adverse Reactions: Allergies Allergy/AdvReac Type Severity Reaction Status Date / Time acetaminophen [From Tylenol] Allergy Unknown Verified 03/17/23 10:09 codeine [From Coditussin AC] Allergy Unknown Verified 03/17/23 10:09 hydroxyzine Allergy Dizziness Verified 03/17/23 10:09 - Social History Does the pt smoke?: No Smoking Status: Former smoker Does the pt drink ETOH?: Yes Does the pt have substance abuse?: No - Immunizations Immunizations are current?: Yes - POLST Patient has POLST: No PD ED PE NORMAL - Vitals Vital signs reviewed: Yes - General General: Alert and oriented X 3, Well developed/nourished, Other (appears in significant pain. Standing up and pacing in room. Holding left abd.) - Cardiac Cardiac: RRR, No murmur - Respiratory Respiratory: Clear bilaterally - Abdomen Abdomen: Normal bowel sounds, Soft, Non tender, Non distended, No organomegaly - Back Back: Other (some left CVA tenderness. ) - Derm Derm: Normal color, Warm and dry - Neuro Neuro: Alert and oriented X 3, No motor deficit, Normal speech Results - Vitals Vitals: Vital Signs - 24 hr 03/17/23 03/17/23 03/17/23 10:07 12:01 14:00 Temperature 36.4 C L 36.2 C L Heart Rate 93 70 68 Respiratory 20 18 18 Rate Blood Pressure 126/105 H 138/99 H 157/92 H O2 Saturation 100 98 99 Oxygen O2 Source Room air - Labs Labs: Laboratory Tests 03/17/23 03/17/23 03/17/23 10:25 10:25 15:13 WBC 12.5 H RBC 5.08 Hgb 14.9 Hct 43.0 MCV 84.6 MCH 29.3 MCHC 34.7 RDW 11.5 L Plt Count 217 MPV 10.8 Neut # (Auto) 9.7 H Lymph # (Auto) 1.6 [place] # (Auto) 1.2 H Eos # (Auto) 0.1 Baso # (Auto) 0.0 Absolute Nucleated RBC 0.00 Nucleated RBC % 0.0 Sodium 137 Potassium 3.6 Chloride 102 Carbon Dioxide 29 Anion Gap 6.0 BUN 23 H Creatinine 1.1 Estimated GFR (MDRD) 76 L Glucose 98 Calcium 9.8 Total Bilirubin 0.5 AST 18 ALT 31 Alkaline Phosphatase 69 Total Protein 7.9 Albumin 4.9 Globulin 3.0 Albumin/Globulin Ratio 1.6 Lipase 17 Urine Color YELLOW Urine Clarity CLEAR Urine pH 5.5 Ur Specific [place] >=1.030 H Urine Protein NEGATIVE Urine Glucose (UA) NEGATIVE Urine Ketones NEGATIVE Urine Occult Blood TRACE-INTA Urine Nitrite NEGATIVE Urine Bilirubin NEGATIVE Urine Urobilinogen 1 (NORMAL) Ur Leukocyte Esterase NEGATIVE Ur Microscopic Review NOT INDICATED Urine Culture Comments NOT INDICATED PD Medical Decision Making - ED course Complexity details: reviewed old records (prior ER visit reviewed, meds given, and also the CT report. I also looked at CT from recent visit to see where the stone was located at that time. ), considered differential (exac of the kidney stone pain. Presume it shifted and has new area of irritation/spasming, and also likely some increased hydronephrosis. The stone is small at just 3 mm, so should be passable size. Shared decision to not need repeat CT scan. ) ED course: given IV fluids, toradol and dilaudid. Repeat dose dilaudid after period of time (hour or so) as pain started increasing again. Subsequently given IV lidocaine for kidney stones per protocol. This provided a much more improved level of pain, down now to about a 2/10. Pain remained lower and tolerable. He felt okay for discharge and see how he does. He does not appear ill. He was unable to give urine sample here at this time. Was okay the few days ago. Departure - Departure Disposition: 01 Home, Self Care Clinical Impression: Abdominal pain, Renal colic on left side Condition: Stable Record reviewed to determine appropriate education?: Yes Instructions: ED Stone Renal W Colic Follow-Up: Gianni Trujillo MD [Provider Admit Priv/Credential] - Comments: Continue with your current medications. Include anti-inflammatory such as ibuprofen or naproxen 2 to 3 tablets 2 or 3 times daily. Tylenol every 4-6 hours if needed. Add the Percocet pain pills that you have every 4-6 hours if needed. Your bladder had only a mild amount of urine still in there. No signs of retention. I presume with further hydration you should be able to have normal urination out. Return to the ER if needed for worse pain again. Follow-up with the primary care or walk-in clinic or urology clinic if not resolved over the next several days more. Your CT scan did not show any other stones up in the kidneys. This looks to be an isolated bad luck kidney stone that you are passing. If this passes without problems, there is not much benefit in following up with urology per se. Forms: PCP List Discharge Date/Time: 03/17/23 15:35
[2023-03-17] MEDS ORDERED: HYDROmorphone 1 MG/ML CARPUJECT IVP STA ×2 (10:28→12:49)
[2023-03-17] MEDS ORDERED: KETOROLAC 15 MG/ML VIAL IVP STA (10:28)
[2023-03-17] MEDS ORDERED: ONDANSETRON 4 MG/2 ML VIAL IVP STA ×2 (10:28→13:15)
[2023-03-17 10:33] LABS: BASOPHILS % (AUTO) 0.2 %; EOSINOPHILS # (AUTO) 0.1 10^3/uL (0.0-0.7); EOSINOPHILS % (AUTO) 0.4 %; HGB - HEMOGLOBIN 14.9 g/dL (14.0-18.0); LYMPHOCYTES # (AUTO) 1.6 10^3/uL (1.5-3.5); LYMPHOCYTES % (AUTO) 12.5 %; MEAN CORPUSCULAR HEMOGLOBIN 29.3 pg (27.0-31.0); MEAN CORPUSCULAR HGB CONC 34.7 g/dL (32.0-36.0); MEAN CORPUSCULAR VOLUME 84.6 fL (80.0-94.0); MEAN PLATELET VOLUME 10.8 fL (7.4-11.4); MONOCYTES # (AUTO) 1.2 10^3/uL (0.0-1.0); MONOCYTES % (AUTO) 9.3 %; NEUTROPHILS # (AUTO) 9.7 10^3/uL (1.5-6.6); NEUTROPHILS % (AUTO) 77.3 %; PLT - PLATELET COUNT 217 10^3/uL (130-450); RED BLOOD COUNT 5.08 10^6/uL (4.70-6.10); RED CELL DISTRIBUTION WIDTH 11.5 % (12.0-15.0); WHITE BLOOD COUNT 12.5 x10^3/uL (4.8-10.8)
[2023-03-17 10:44] LABS: ALBUMIN 4.9 g/dL (3.2-5.5); ALBUMIN/GLOBULIN RATIO 1.6 (1.0-2.2); BILIRUBIN,TOTAL 0.5 mg/dL (0.2-1.0); CALCIUM 9.8 mg/dL (8.5-10.3); CREATININE 1.1 mg/dL (0.6-1.3); POTASSIUM 3.6 mmol/L (3.5-4.5); TOTAL PROTEIN 7.9 g/dL (6.4-8.9)
[2023-03-17] MEDS ORDERED: SODIUM CHLORIDE 0.9% 1,000 ML IV STA (11:38)
[2023-03-17] MEDS ORDERED: HYDROmorphone 0.5 MG/0.5 ML SYRINGE IVP STA (12:09)
[2023-03-17] MEDS ORDERED: LIDOCAINE-MPF 2% 6 ML in SODIUM CHLORIDE 0.9% 50 ML IV STA (13:15)
[2023-03-17 14:16] VITALS: BP 157/92
[2023-03-17 15:23] LABS: BILIRUBIN,URINE NEGATIVE (NEGATIVE); GLUCOSE, URINE (UA) NEGATIVE (NEGATIVE); KETONES,URINE (UA) NEGATIVE (NEGATIVE); LEUKOCYTE ESTERASE, URINE NEGATIVE (NEGATIVE); NITRITE,URINE NEGATIVE (NEGATIVE); OCCULT BLOOD,URINE TRACE-INTA (NEGATIVE); PH,URINE 5.5 PH (5.0-7.5); PROTEIN,URINE NEGATIVE (NEGATIVE); UROBILINOGEN,URINE 1 (NORMAL) E.U./dL (NORMAL)
[2023-03-17 15:24] LABS: CLARITY,URINE CLEAR (CLEAR)
== END 2023-03-17 15:35 | disposition home or self-care (01) ==
LOC: ED 09:58
DX: N23 Unspecified renal colic (principal); Z87.891 Personal history of nicotine dependence
CPT/HCPCS: 36415; 80053; 81003; 83690; 85025; 96365; 96375; 96376; 99283; J1170; J7040; 81001; 87086

== ENCOUNTER 2023-04-04 08:00 | Outpatient (CLI) | payer BC ==
[2023-04-04 20:38] LABS: BILIRUBIN,URINE NEGATIVE (NEGATIVE); GLUCOSE, URINE (UA) NEGATIVE (NEGATIVE); KETONES,URINE (UA) NEGATIVE (NEGATIVE); LEUKOCYTE ESTERASE, URINE NEGATIVE (NEGATIVE); NITRITE,URINE NEGATIVE (NEGATIVE); OCCULT BLOOD,URINE MODERATE (NEGATIVE); PROTEIN,URINE NEGATIVE (NEGATIVE); UROBILINOGEN,URINE 0.2 (NORMAL) E.U./dL (NORMAL)
[2023-04-04 20:40] LABS: CLARITY,URINE HAZY (CLEAR)
[2023-04-04 20:55] LABS: BACTERIA,URINE None Seen /HPF (None Seen); SQUAMOUS EPITHELIAL CELL,UR NONE SEEN (<= Few); WBC,URINE 0-3 /HPF (0-3)
== END 2023-04-04 23:59 | disposition home or self-care (01) ==
LOC: LAB.S 08:00
PROVIDERS: ATTEND Physician Assistant Medical
DX: N20.0 Calculus of kidney (principal)
CPT/HCPCS: 81001; 87086

== ENCOUNTER 2023-04-15 14:45 | Outpatient (CLI) | payer BC | END 2023-04-15 23:59 | disposition home or self-care (01) | LOC: LAB 14:45 | PROVIDERS: ATTEND Urology | DX: N20.0 Calculus of kidney (principal) | CPT/HCPCS: 82365 ==